=== PATIENT | male | born 1960 | race Caucasian/White ===

== ENCOUNTER → 2019-05-24 | Day surgery (SDC) | payer OTHER ==
[~2019-05-24] MED LIST: Bacitracin Zinc Ointment 30 gm TUBE ONE; Bupivacaine PF 0.5% 30 ML VIAL ONE; Fentanyl 100 MCG/2 ML VIAL ONE; Ketorolac Tromethamine 30 MG/ML VIAL ONE; Lidocaine 1% PF 5 ML VIAL ONE; Midazolam HCl 2 mg/2 ml Vial ONE; Ondansetron PF 4 MG/2 ML Vial ONE; PROPOFOL 200 MG/20 ML VIAL ONE; Sodium Chloride 0.9% 10 ML ONE; ceFAZolin Sodium (SDC) 2 GM/100 ML BAG ONE
[2019-05-24 18:01] LABS: #Eosinphils 0.2 thou/uL (0.0-0.7); #Lymphocytes 1.5 thou/uL (1.20-3.40); #Monocytes 0.6 thou/uL (0.11-0.59); #Neutrophils 4.8 thou/uL (1.40-6.50); %Basophils 0.7 % (0.0-1.0); %Eosinophils 2.6 % (0.0-10.0); %Lymphocytes 21.4 % (21.0-51.0); %Monocytes 8.1 % (0.0-10.0); %Neutrophils 67.1 % (42.0-75.0); Hemoglobin 14.5 g/dL (14.0-18.0); Mean Corpuscular HGB CONC 34.4 g/dL (32.0-36.0); Mean Corpuscular Hemoglobin 31.8 pg (27.0-31.0); Mean Corpuscular Volume 92.5 fL (78.0-98.0); Mean Platelet Volume 7.8 fL (7.4-10.4); Platelet Count 241 thou/uL (130-400); Red Blood Cell (RBC) Count 4.57 mill/uL (4.70-6.10); White Blood Cell (WBC) Count 7.2 thou/uL (4.8-10.8)
--- NOTE | 2019-05-25 09:58 | OP ---
DATE OF PROCEDURE: 05/24/2019 PREOPERATIVE DIAGNOSES: 1. Hematoma with open wound, possible nonhealing. 2. Intact flap, first dorsal metatarsal artery type. 3. Wound separation over 10 cm area. PROCEDURES PERFORMED: 1. [place] [id number] [place], but not including bone. 2. Evacuation of hematoma, dorsal right hand. 3. Closure of wound, complex, using multiple layer techniques, right hand. SPECIMEN: None. ESTIMATED BLOOD LOSS: 10 mL. TOURNIQUET TIME: 0. INDICATIONS FOR PROCEDURE: The patient is now nearly 3 weeks since actual loss of the distal half of his thumb at the neck-head junction of the metacarpal. He had more skin loss than bone, so instead of shortening him, we decided to put a 1st dorsal metatarsal artery flap on which remained in good condition grossly, but his wound . Operation was taken in an urgent basis to restore coverage over area where neurovascular bundle may be exposed or may be actively bleeding. DESCRIPTION OF PROCEDURE: After successful general endotracheal anesthesia, the limb was prepped and draped. The patient had the wound inspected, we undermined edges 360 degrees and we found hematoma in red and kadie phases of resolution. We debrided the hematomas, irrigated out all the places we found in this region, and then undermined the skin and ultimately closed the previously resected wound edges without complication. The patient then had a bulky dressing applied after giving him a total of 10 mL of 0.5% Marcaine, roopa-incisional technique and left the operating room without evidence of anesthetic or operative complication. Job ID: [id number]
== END ==
LOC: SDC 17:00
PROVIDERS: ATTEND Orthopaedic Surgery Hand Surgery
PROC: 0R9 Upper Joints, Drainage (ICD-10-PCS; principal; 2019-05-24)
PROC: 0HQFXZZ Repair Right Hand Skin, External Approach (ICD-10-PCS; principal; 2019-05-24)
DX: S60.221A Contusion of right hand, initial encounter (principal); S61.401A Unspecified open wound of right hand, initial encounter; Z89.011 Acquired absence of right thumb; Z98.890 Other specified postprocedural states; Z79.899 Other long term (current) drug therapy; X58.XXXA Exposure to other specified factors, initial encounter
CPT/HCPCS: 85025; 87070; 87205; J0690; J2250; J3010; J3490; S0020